=== PATIENT | male | born 1955 | race Caucasian/White ===

== ENCOUNTER 2023-08-19 06:15 | Inpatient (IN) | payer MEDICARE, OTHER, SELFPAY ==
[2023-08-19] VITALS (22 sets, daily range): BP systolic 67–192; BP diastolic 53–160; BMI 27.0
[2023-08-19] MEDS: DILAUDID 0.5 MG IV (04:25)
[2023-08-19 04:28] LABS: % Basophils 0.9 % (0-2); % Eosinophils 1.9 % (0-6); % Immature Granulocytes 0.3 % (0-0.5); % Lymphocytes 37.5 % (20.5-51.1); % Monocytes 5.7 % (1.7-9.3); % Neutrophils 53.7 % (42.2-75.2); Absolute Basophils 0.1 10^3/uL (0-0.2); Absolute Eosinophils 0.2 10^3/uL (0-0.7); Absolute Lymphocytes 4.3 10^3/uL (1.2-3.4); Absolute Monocytes 0.7 10^3/uL (0.1-0.6); Absolute Neutrophils 6.1 10^3/uL (1.4-6.5); Hematocrit 45.7 % (39.0-52.0); Hemoglobin 16.3 g/dL (13.0-18.0); Mean Corp Hgb Conc. 35.7 g/dL (33.0-37.0); Mean Corpuscular Hgb 30.7 pg (27.0-31.0); Mean Corpuscular Volume 86.1 fL (80.0-94.0); Mean Platelet Volume 9.8 fL (7.4-10.4); Nucleated Red Blood Cells % 0 % (-); Platelet Count 240 10^3/uL (130-400); Red Blood Cell Count 5.31 10^6/uL (4.70-6.10); White Blood Cell Count 11.4 10^3/uL (4.8-10.8)
--- NOTE | 2023-08-19 04:30 | ED.GENMED ---
History of Present Illness
General
Chief Complaint: Chest Pain
Source: patient
Exam Limitations: none
Time Seen by Provider: 08/19/23 04:14
Nursing documentation reviewed up to this point in time: agreed with
Travel History
Have you had any contact with someone who has COVID-19?: No
Do you have any symptoms of coronavirus? Fever > 100 degrees, chills, cough, shortness of breath, sore throat, loss of taste or smell, muscle aches, or headache?: No
History of Present Illness
History of Present Illness:
Patient without any significant past medical history, presents to ED secondary to sudden onset of chest pain, when he came out of shower this morning around 3 AM. Chest pain described as pressure, burning, with radiation to the back, associated
with 'not feeling well'. Denies headache. Denies dizziness. Denies diaphoresis. Denies nausea or vomiting. Of note, patient states that he has had intermittent chest pain over the past 2 days, with each episode lasting approxi-1 hour with
spontaneous resolution. Denies recent illness. Denies leg pain or swelling. Denies recent travel. Denies recent surgery. There is family history of heart disease. Patient does not smoke alcohol.
Review of Systems
Review of Systems
Allergies reviewed?: Yes
All Other Systems: ROS reviewed and negative except as documented in HPI and ROS
Constitutional: Reports no symptoms
EENT: Reports no symptoms
Respiratory: Reports no symptoms
Cardiac: Reports chest pain
ABD/GI: Reports no symptoms
: Reports no symptoms
Musculoskeletal: Reports no symptoms
Skin: Reports no symptoms
Neurological: Reports no symptoms
Phy Exam
Physical Exam
Physical Exam:
Physical Exam
General: moderate distress, acutely ill. afebrile. hypertensive.
Head: nc/at. eomi
Neck: supple. no meningeal signs.
Heart: s1/s2 regular rate and rhythm, no murmur. equal radial pulses.
Lungs: no acute respiratory distress. clear bilaterally
Abdomen: normal bowel sounds. not tender.
Neuro: alert and oriented. no focal neurological deficits
Skin: no rash
Psychiatric: well kept. interactive and cooperative
Extremities: no edema. no calf tenderness.
Scores
Heart Score for Chest Pain Patients
STEMI patient?: Yes
History: Moderately Suspicious
ECG: Significant ST-Depression
Age: >/= 65 years
Risk Factors: No Risk Factors
Troponin: >1 - <3 x Normal Limit
Heart Score for Chest Pain Patients: 6
Heart Score Risk: 20.3% MACE over next 6 weeks
Course
Orders/Labs/Results
Orders:
Orders
08/19/23 04:09
Electrocardiogram (*1) Urgent
Reason for Study: Chest Pain
EKG- Treatment ONCE
08/19/23 04:19
Electrocardiogram (*1) Urgent
Reason for Study: Chest Pain
EKG- Treatment ONCE
Portable Chest Xray [CR Chest Portable - 1 View] Urgent
Comment:
Reason For Exam: chest pain
Reason Study Needs to be Portable: Unable to Transport
08/19/23 04:20
CMP [Comprehensive Metabolic Panel] Urgent
Complete Blood Count/With Diff Urgent
Troponin I Urgent
08/19/23 04:23
HYDROmorphone [Dilaudid] 0.5 mg .ROUTE .STK-MED ONE
08/19/23 04:25
HYDROmorphone [Dilaudid] 0.5 mg IV NOW STA
08/19/23 04:31
CT Angio Chest/Abd W/Wo Iv Contrast [CT Chest/abd Angio W/wo Iv Con] Urgent
Comment:
Reason For Exam: chest pain radiating to back
08/19/23 04:44
Fentanyl Citrate/Pf [Sublimaze] 50 mcg IV NOW STA
08/19/23 04:50
Nitroglycerin 100 mg/250 ml [Nitroglycerin Premix] 100 mg in 250 ml .ROUTE .STK-MED
08/19/23 04:55
Nitroglycerin 100 mg/250 ml [Nitroglycerin Premix] 100 mg in 250 ml IV NOW
Initial dose in mcg/min, then titrate:: 50
Titrate to keep:: Chest Pain Free
Titrate by mcg/min:: 5 mcg/min, may increase by 10 mcg/min if dose > 20 mcg/min
Frequency of titrations (minutes):: every 3-5 minutes
Maximum dose in mcg/min:: 200
Begin to taper infusion when:: Remained at goal for 2hrs
Taper by mcg/min:: 5 mcg/min
Frequency of taper (minutes) if patient maintains goal:: 30
Taper to off?: Yes
If infusion off & no longer maintaining goal:: Contact Provider
08/19/23 04:58
Heparin 1000 Units/500 ml [Heparin] 1,000 units in 500 ml .ROUTE .STK-MED
Heparin Sodium,Porcine/Ns/Pf [Heparin 2000 Units/1000 ml] 2,000 unit in 1,000 ml .ROUTE .STK-MED
Lidocaine HCl/Pf [Xylocaine-Mpf 1% Vial] 50 mg .ROUTE .STK-MED ONE
Nitroglycerin [Tridil] 1,500 mcg .ROUTE .STK-MED ONE
Verapamil Injectable [Isoptin/Verapamil Injection] 5 mg .ROUTE .STK-MED ONE
08/19/23 04:59
Fentanyl Citrate/Pf [Sublimaze] 100 mcg .ROUTE .STK-MED ONE
Midazolam HCl [Versed] 2 mg .ROUTE .STK-MED ONE
08/19/23 05:00
Heparin 10,000 units .ROUTE .STK-MED ONE
08/19/23 05:07
Ticagrelor [Brilinta] 180 mg .ROUTE .STK-MED ONE
08/19/23 05:26
Eptifibatide [Integrilin] 10 ml .ROUTE .STK-MED
Eptifibatide [Integrilin] 10 ml .ROUTE .STK-MED
08/19/23 06:11
Admit Patient As Directed
Co-Sign Provider:
Level of Care: Inpatient admission
Assign to:: IVU
Physician / Group: Hattie
Diagnosis: Anterior STEMI
Patient Condition: Serious
Reason for Hospitalization: Anterior STEMI
Expected length of stay greater than two midnights?: Yes
ELOS- Estimated Length of Stay in days: 4
I certify the patient meets the requirements for IP care: Yes
Electrocardiogram (*1) Urgent
Reason for Study: Other
Other Reason for Exam: s/p intervention
CARDIAC REHAB CONSULT Routine
Co-Sign Provider:
Type of Cardiac Rehab Referral: Outpatient
Diagnosis: STEMI
Date of Diagnosis/Surgery: 312
Referring Provider: Johnson Kuhn
Heparin Protocol- PTT Orders As Directed
PTT per Heparin protocol: -Obtain CBC and baseline PTT - if not already collected.
-Obtain PTT 6 hours from start of infusion. Then, every 6 hours until 2 consecutive
PTT's are therapeutic. Then, PTT Daily.
-With each rate change, obtain PTT every 6 hours until 2 consecutive PTT's are
therapeutic. Then, PTT Daily.
Activity As Directed
Activity Level: Out of Bed- Chair
Comment: bed/chair rest for 2 hours then out of bed ad katie
Assistant Operations Manager Procedure As Directed
Cardiac Cath Procedure: percutaneous coronary intervention
ECG as needed As Directed
ECG as needed for:: Rhythm Change
Intake/ Output As Directed
Frequency: Per unit guidelines
Notify MD As Directed
Notify physician if: For ECG after doses 1-5 and PRN rhythm change:
--Notify provider if QTc interval is > 500 msec
Notify MD As Directed
Notify physician if: PTT is greater than or equal to 200.
Notify MD As Directed
Notify physician if: immediately for chest pain or bleeding from access site(s)
Radial Artery Hemostasis Method As Directed
Instructions:: 3 mL out at 2 hour posts placement of band
3 mL out at 2 1/2 hours post placement of band
3 mL out at 3 hours post placement of band
Off at 3 1/2 hours post placement of band
If any oozing or hemotoma occurs:: re-inflate band and call provider
Site Checks As Directed
Check access site for bleeding/hematoma: Yes
Comment: on arrival, Q15min x4, Q30min x2, Q1 hr x2, Q2 hr x2, Q4 hr or per
protocol
Vascular Checks As Directed
Location: distal to access site - pulse check
Frequency: Other
Comment: on arrival, Q15min x4, Q30min x2, Q1 hr x2, Q2 hr x2, Q4 hr or per protocol
Vital Signs As Directed
Frequency: Other
Additional Instructions:: on arrival, Q15min x4, Q30min x2, Q1 hr x2, Q2 hr x2, then Q4 hr or per unit
protocol
08/19/23 06:12
Acetaminophen [Tylenol] 650 mg PO Q4HPRN PRN
08/19/23 06:13
DX Deep Vein Thrombosis Video Routine
08/19/23 06:15
0.9% Sodium Chloride 1000 ml [Nss] 1,000 ml IV 100 mls/hr
08/19/23 06:39
Troponin I Q6H
08/19/23 08:00
Aspirin Chewable [Low Strength Aspirin] 81 mg PO DAILY
08/19/23 Lunch
Cholesterol Lowering
At Your Request: Full Participation
Does patient need a safe tray?: No
Cholesterol Lowering: Sodium, 2 Gram
08/19/23 11:50
Troponin I Q6H
08/19/23 14:00
Metoprolol [Lopressor] 25 mg PO BID
08/19/23 18:00
Atorvastatin [Lipitor] 80 mg PO QPM
Enoxaparin Sodium [Lovenox] 40 mg SC QPM
08/19/23 18:25
Troponin I Q6H
08/19/23 20:00
Lisinopril [Zestril] 2.5 mg PO BID
Ticagrelor [Brilinta] 90 mg PO BID
08/20/23 06:00
Echo 2D MMode Color/Doppler IN AM
Reason for Study: Anterior STEMI
Cardiology Consult: Jeovany Kuhn
Electrocardiogram (*1) IN AM
Reason for Study: Other
Other Reason for Exam: s/p intervention
Basic Metabolic Panel IN AM
Cardiovascular Evaluation IN AM
Complete Blood Count/With Diff IN AM
Glycohemoglobin (HgbA1c) IN AM
08/21/23 06:00
Complete Blood Count/No Diff Q2D
Comment: notify provider: Platelet count < 130,000 or decrease by 50% from baseline
08/23/23 06:00
Complete Blood Count/No Diff Q2D
Comment: notify provider: Platelet count < 130,000 or decrease by 50% from baseline
08/25/23 06:00
Complete Blood Count/No Diff Q2D
Comment: notify provider: Platelet count < 130,000 or decrease by 50% from baseline
08/27/23 06:00
Complete Blood Count/No Diff Q2D
Comment: notify provider: Platelet count < 130,000 or decrease by 50% from baseline
08/29/23 06:00
Complete Blood Count/No Diff Q2D
Comment: notify provider: Platelet count < 130,000 or decrease by 50% from baseline
08/31/23 06:00
Complete Blood Count/No Diff Q2D
Comment: notify provider: Platelet count < 130,000 or decrease by 50% from baseline
09/02/23 06:00
Complete Blood Count/No Diff Q2D
Comment: notify provider: Platelet count < 130,000 or decrease by 50% from baseline
09/04/23 06:00
Complete Blood Count/No Diff Q2D
Comment: notify provider: Platelet count < 130,000 or decrease by 50% from baseline
Abnormal Lab Results
08/19/23 08/19/23
04:20 05:22
WBC 11.4 H 10^3/uL
(4.8-10.8)
Absolute Lymphs (auto) 4.3 H 10^3/uL
(1.2-3.4)
Absolute Monos (auto) 0.7 H 10^3/uL
(0.1-0.6)
BUN 22 H mg/dl
(9-20)
Glucose 153 H mg/dl
(70-99)
Total Bilirubin 2.1 H mg/dl
(0.2-1.3)
Troponin I 0.165 H* ng/ml
POC ACT Low Range 250 H Seconds
(116-155)
08/19/23 04:20
08/19/23 04:20
Vital Signs
Initial and Last Documented VS:
Initial Vital Signs
Pulse Resp BP Pulse Ox
88 24 192/116 100
08/19/23 04:15 08/19/23 04:15 08/19/23 04:15 08/19/23 04:15
Last Documented Vital Signs
Temp Pulse Resp BP Pulse Ox
97.6 F 61 18 138/84 98
08/19/23 16:10 08/19/23 16:45 08/19/23 16:10 08/19/23 16:04 08/19/23 16:10
MDM/Problems Addressed
MDM/Problems Addressed:
History exam concerning for acute coronary syndrome. Initial EKG with ST depression laterally and inferiorly, without any acute ST elevation. Patient given nitroglycerin x 2, without any change in chest pain. Patient subsequently given Dilaudid
for pain control. Repeat EKG concerning for potential evolution of anterior leads. Discussed with Dr. Kuhn, Assistant Operations Manager attending, including review of EKGs obtained. Agrees with plan to obtain CT angiogram at this time to evaluate for potential
dissection. If negative, patient will be transferred to Assistant Operations Manager for cardiac catheterization. Medications, including aspirin, heparin, and Brilinta, to be given, once dissection is ruled out.
Nitroglycerin gtt started for better BP control.
CTA Chest: negative for dissection.
Pt will be transferred to it support technician for cardiac catherization.
Critical care statement: A total of 40 minutes of critical care time was provided for this patient. This includes management of unstable vital signs, evaluation of the patient at bedside, reviewing the patient's pertinent medical records, discussion
with consultants, review of old EKGs and review of pertinent medical records. This time with separate from time utilized to perform the aforementioned documented procedures
*Critical Care Note
Total Time (30-74mins, 75-104mins- exclusive of procedures): 40 min
ED Attending Note
-
Portions of this chart may have been created with voice recognition software.� Occasional wrong word or��sound alike� substitutions may have occurred due to the inherent limitations of voice recognition software.
Discharge Plan
Departure
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
Date of Disposition: 08/19/23
Time of Disposition: 05:04
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
Presentation/result/management discussed w/ accepting MD/DO:
Discharge Problem:
Chest pain
Interventions
Interventions:
*General Assessment Last Done: 08/19/23 04:30
*Neglect/Abuse Screening Last Done: 08/19/23 04:30
ED- Fall Risk Assessment Last Done: 08/19/23 04:45
*Nursing Disposition Last Done: 08/19/23 04:45
ED- Cardiac Assessment Last Done: 08/19/23 04:45
Discharge Date and Time
Discharge Date/Time: 08/19/23 05:20
[2023-08-19 04:51] LABS: ALT (SGPT) 49 U/L (0-50); AST (SGOT) 41 U/L (17-59); Albumin 4.8 g/dl (3.5-5.0); Alkaline Phosphatase 77 U/L (38-126); Blood Urea Nitrogen 22 mg/dl (9-20); Calcium 10.2 mg/dl (8.4-10.2); Carbon Dioxide 27 mmol/L (22-30); Chloride 102 mmol/L (98-107); Estimated Creatinine Clearance 76 ml/min; Glucose 153 mg/dl (70-99); Sodium 140 mmol/L (135-145); Total Bilirubin 2.1 mg/dl (0.2-1.3); Total Protein 7.9 g/dl (6.3-8.2); eGFR > 60.00
[2023-08-19] MEDS: SUBLIMAZE 50 MCG IV (04:54)
[2023-08-19] MEDS: NITROGLYCERIN PREMIX 250 IV (04:55)
[2023-08-19 05:04] LABS: Troponin I 0.165 ng/ml
[2023-08-19 05:29] LABS: ACT-LR - POC 250 Seconds (116-155)
--- NOTE | 2023-08-19 06:11 | ITS.CL.CATH ---
Charge Histotechnologist - Catheterization
Cardiac Catheterization
Procedure Report:
CARDIAC CATHETERIZATION REPORT
Date of Procedure: 08/19/2023
Referring: Hernandez Bright MD ([facility])
Indication: Acute anterior STEMI x 2 hrs
HEMODYNAMIC DATA
AO: 151/88
LV: 151/17
LEFT VENTRICULOGRAPHY: Severe anterolateral and apical hypokinesis with EF 39 %
CORONARY ANGIOGRAPHY
Dominance: Right
Left Main: Normal
LAD: The LAD is proximally occluded. There is a high rising medium sized diagonal branch originating just proximal to the site of occlusion. There is MARCELLE grade 0 flow distal to the LAD occlusion. There is sluggish retrograde collateralization of
the LAD from the distal RPDA. The D1 branch has 70-80% mid stenosis. This is a small 1.5 mm vessel.
Circumflex: The circumflex gives rise to a twig like OM1 and a large OM 2. There is 60% ostial OM2 stenosis and 50% proximal OM2 stenosis. The mid circumflex has 30-40% stenosis immediately distal to the takeoff of OM 2. There is a small OM 3 and
several small left posterolateral branches originating from the circumflex
RCA: The RCA is dominant with 40% proximal stenosis and tandem 60 and 70% mid stenoses proximal to the crux. The acute marginal branch gives rise to the PDA and the RCA continues on to supply several small right posterolateral branches
Angioplasty: At the conclusion of the diagnostic study, we proceeded with intervention to treat the acute proximal LAD occlusion. Heparin was used for anticoagulation. The patient was not on aspirin at home and had not received aspirin in the
emergency room until the CT scan showed no evidence of dissection. He was given a bolus dose of Brilinta on arrival in the Charge Histotechnologist. For this reason I felt double bolus Integrilin would be addison. A JL 4 guide catheter was advanced to the left
coronary ostium. A whisper wire was successfully advanced across the occluded proximal LAD. Of note, I started with a hydrophilic whisper wire as the RCA collateral to the distal LAD suggested that this might actually be a more chronic occlusion.
The whisper wire easily crossed consistent with an acute occlusion. A 2.5 x 15 trek balloon was used to dilate the occlusion. This restored flow. There was a 70% mid LAD lesion noted downstream of the occlusion. We started by stenting the mid
LAD lesion with a 3.25 x 15 Xience esthela point CARLY which was deployed at 14 makenna and postdilated with a 3.25 NC trek to 17 makenna. The angiographic result was outstanding. At this point we stented the proximal LAD culprit lesion with a 3.5 x 18 Xience
esthela point CARLY deployed at 14 makenna then postdilated with a 3.5 NC trek to 17 makenna. The final angiographic result was outstanding with no residual stenosis at the infarct site and normal (MARCELLE grade III) flow to the LV apex. There were no procedural
complications.
Closure Device: None-the procedure was performed via the right radial artery. The Miguel Angel's test was normal prior to the procedure.
Radiation (mGy): 70
DAP (cm2.Gy): 62.7
Fluoroscopy time: 8.6 minutes
CONCLUSIONS
1: Acute anterior STEMI of approximately 2 hours duration
2: Multivessel CAD as described
3. Successful angioplasty and stenting of culprit proximal LAD occlusion using 3.5 x 18 Xience CARLY
4. Successful stenting of 70% mid LAD lesion using 3.25 x 15 Xience CARLY
5. We will review options for further revascularization to include stenting of the RCA disease
6. Recommend dual antiplatelet therapy for 12 months and aggressive risk factor modification along with routine post LA therapy with beta-samy and NEVIN inhibitor
Copy to: Clark Jaimes MD, Jeovany Kuhn MD
Jeovany Kuhn MD, [facility], [facility]
--- NOTE | 2023-08-19 06:20 | PTCARENOTE ---
Addendum entered by Kenzie Basurto RN 08/19/23 07:26:
pt w/ resid #1 chest/ back pain- instructed to call if pain worsens
Original Note:
Rec'd pt from tag and label cutter via stretcher on monitor accomp by wood and wood products labourer,oriented to icu routine,R rad TR band intact, fingers warm/good sensation, pulse ox on R hand- sat 99, R rad pulse intact, RA, lungs clear, sat 96, urinal at bedisde
--- NOTE | 2023-08-19 06:46 | CON.CAR ---
Consultation
Consultation Request
Date/Time Consultation Requested: 08/18 4:30 AM
Date/Time Consultation Performed: 08/18 4:50 AM
Requesting Provider: Deangelo
Performing Provider: Hattie
Reason for Consultation: Chest pain
Medical History
-
Chief Complaint: Chest pain
History of Present Illness:
68-year-old man with no prior cardiac history presents to the ER with unremitting moderate to severe chest discomfort radiating directly into his back since 330 this morning when he awoke. He had mild chest pain radiating to his back over the past
48 hours which he thought was muscular in etiology. This morning his pain was unremitting and accompanied by mild diaphoresis. He was brought to the ER by his . Initial ECG showed sinus rhythm with borderline ST elevation V2 V3 which did not
meet STEMI criteria. There was also inferior and lateral ST depression of about 1 mm. He was given sublingual nitroglycerin without relief. Following discussion with Dr. Hernandez Bright, a STEMI alert was called. CAD risk factors are negative for
family history of premature CAD although his dad of GA at 85 and his brother had a stent at age 70. He is a lifelong non-smoker. We have no idea about hypertension dyslipidemia or diabetes as he is not a frequent user of [facility].
He identifies Dr. Clark Jaimes as his primary physician although he has not seen him in several years.
PE: Blood pressure 190/96, heart rate 84 regular, respiratory rate 24
Neck supple no JVD carotids 1+
Heart sounds regular S1-S2 no murmur
Lungs clear
Abdomen soft nontender
No edema
Neuro nonfocal
Impression:
ACS/anterior STEMI
CTA done showing no evidence of dissection
Aspirin, Brilinta, heparin
Immediate cath with revascularization is planned
CCT 30 minutes
Allergies / Home Medications
Allergy/AdvReac Type Severity Reaction Status Date / Time
No Known Allergies Allergy Verified 08/19/23 04:17
Physical Exam
Vital Signs
Pulse Resp BP Pulse Ox
70 24 153/95 98
08/19/23 04:30 08/19/23 04:30 08/19/23 04:30 08/19/23 04:30
Lab Results
08/19/23 04:20
08/19/23 04:20
Troponin I 0.165 ng/ml H* 08/19/23 04:20
[2023-08-19] MEDS: NSS 1000 IV (06:59)
[2023-08-19] MEDS: LOW STRENGTH ASPIRIN 81 MG PO (07:30)
[2023-08-19] MEDS: TYLENOL 650 MG PO (07:44)
--- NOTE | 2023-08-19 07:58 | PTCARENOTE ---
report received, assessments per work list. patient alert and oriented. right radial TR band in place. lungs clear. monitor nsr, abdomen soft, active bowel sounds. patient states his chest and back pain were a 1/10 post cath and stents and is
presently a 3/10. Dr Kuhn updated by tiger text. medicated with tylenol per prn order. ekg repeated. received update from Dr Kuhn via tiger text, this was forwarded to the ICU pharmacist. call hicks in reach
--- NOTE | 2023-08-19 09:16 | PTCARENOTE ---
patient states he is more comfortable post tylenol and wants to 'hold off on percocet' at this time. no signs bleeding from right radial site
--- NOTE | 2023-08-19 12:43 | PTCARENOTE ---
Addendum entered by Mayra Gonzalez RN 08/19/23 12:56:
cardiology RN RESEARCH updated with critical troponin
Original Note:
patient assisted to bathroom, gait steady. c/o continued chest/back mild discomfort 07/19 but declines percocet. right wrist dressing dry and intact. no signs bleeding or hematoma. call hicks in reach
[2023-08-19] MEDS: LOPRESSOR 25 MG PO ×2 (13:49→20:23)
--- NOTE | 2023-08-19 14:16 | PTCARENOTE ---
tolerating diet, states chest and back achiness has not changed but continues to decline Tylenol or Percocet. call hicks in reach
--- NOTE | 2023-08-19 16:00 | PTCARENOTE ---
Rec'd report from Marya in ICU. Pt transported w/personal belongings via WC & able to ambulate into room unassisted. Pt AAOx3 w/c/o of 'mild chest tenderness' s/p cardiac cath this AM. Pt w/ dressing C/D/I to R radial access site. VS stable w/HR
in the 60's & BP 138/84. Pt oriented to rm & call hicks within reach. No addtl needs at this time.
[2023-08-19] MEDS: LOVENOX 40 MG SC (18:27)
[2023-08-19] MEDS: LIPITOR 80 MG PO (18:27)
[2023-08-19] MEDS: BRILINTA 90 MG PO (20:23)
[2023-08-19] MEDS: ZESTRIL 2.5 MG PO (20:23)
[2023-08-20] VITALS (12 sets, daily range): BP systolic 98–140; BP diastolic 58–81; BMI 26.4
[2023-08-20 03:51] LABS: % Basophils 0.3 % (0-2); % Eosinophils 1.3 % (0-6); % Immature Granulocytes 0.3 % (0-0.5); % Lymphocytes 23.2 % (20.5-51.1); % Monocytes 6.7 % (1.7-9.3); % Neutrophils 68.2 % (42.2-75.2); Absolute Eosinophils 0.2 10^3/uL (0-0.7); Absolute Lymphocytes 2.7 10^3/uL (1.2-3.4); Absolute Monocytes 0.8 10^3/uL (0.1-0.6); Absolute Neutrophils 8.1 10^3/uL (1.4-6.5); Blood Urea Nitrogen 18 mg/dl (9-20); Calcium 9.5 mg/dl (8.4-10.2); Carbon Dioxide 27 mmol/L (22-30); Chloride 104 mmol/L (98-107); Estimated Creatinine Clearance 93 ml/min; Glucose 110 mg/dl (70-99); HDL Cholesterol 50 mg/dl; Hematocrit 41.5 % (39.0-52.0); Hemoglobin 14.7 g/dL (13.0-18.0); LDL Cholesterol, Calculated 117 mg/dl; Mean Corp Hgb Conc. 35.4 g/dL (33.0-37.0); Mean Corpuscular Hgb 30.9 pg (27.0-31.0); Mean Corpuscular Volume 87.2 fL (80.0-94.0); Mean Platelet Volume 10.4 fL (7.4-10.4); Nucleated Red Blood Cells % 0 % (-); Platelet Count 195 10^3/uL (130-400); Potassium 4.3 mmol/L (3.5-5.1); Red Blood Cell Count 4.76 10^6/uL (4.70-6.10); Sodium 138 mmol/L (135-145); Total Cholesterol 197 mg/dl (50-199); Triglyceride 154 mg/dl (10-149); Very Low Density Lipoprotein 30 mg/dl (0-30); White Blood Cell Count 11.8 10^3/uL (4.8-10.8); eGFR > 60.00
--- NOTE | 2023-08-20 07:25 | W.PN.CD ---
Today's Communication / Plan
-
Staged PCI of RCA today.
Echocardiogram pending.
Impression / Plan
-
Impression/Plan: 68 y/o male with no significant prior medical history admitted with anterior STEMI.
#STEMI
-S/P successful PCI to proximal/mid LAD (Xience Skypoint 3.5 x 18, 3.25 x 15 CARLY) early on 08/19/2023.
-Troponin peaked at 143.
-DAPT with aspirin and ticagrelor for at least 12 months.
-Echocardiogram ordered and pending.
-Secondary prevention with high dose, high potency statin.
#Residual CAD
-Plan for staged PCI of the 60-70% mRCA lesion.
-Medical management of LCx disease.
#HLD
-New diagnosis.
-Total cholesterol = 197, LDL = 117, HDL = 50, Triglycerides = 154.
-High dose, high potency statin.
-Goal LDL < 55.
#PPx
-SCD's for DVT/VTE.
-No role for PPI at this time.
#Dispo
-IVU status.
-Full code.
Subjective/Interval History:
One episode of hypotension () yesterday at 16:02 - none since.
Renal function stable.
Currently chest pain free.
DATA:
Cardiac Catheterization/PCI, 08/19/2023:
CORONARY ANGIOGRAPHY
Dominance: Right
Left Main: Normal
LAD: The LAD is proximally occluded.� There is a high rising medium sized diagonal branch originating just proximal to the site of occlusion.� There is MARCELLE grade 0 flow distal to the LAD occlusion.� There is sluggish retrograde collateralization of
the LAD from the distal RPDA.� The D1 branch has 70-80% mid stenosis.� This is a small 1.5 mm vessel.
Circumflex: The circumflex gives rise to a twig like OM1 and a large OM 2.� There is 60% ostial OM2 stenosis and 50% proximal OM2 stenosis.� The mid circumflex has 30-40% stenosis immediately distal to the takeoff of OM 2.� There is a small OM 3 and
several small left posterolateral branches originating from the circumflex
RCA: The RCA is dominant with 40% proximal stenosis and tandem 60 and 70% mid stenoses proximal to the crux.� The acute marginal branch gives rise to the PDA and the RCA continues on to supply several small right posterolateral branches
Successful angioplasty and stenting of culprit proximal LAD occlusion using 3.5 x 18 Xience CARLY
Successful stenting of 70% mid LAD lesion using 3.25 x 15 Xience CARLY
CTA chest/abdomen/pelvis, 08/19/2023:
IMPRESSION:
Atherosclerosis including coronary artery calcification with hypoenhancement of the anterior aspect of the interventricular septum and apex of the left ventricle such as may be seen with left anterior descending distribution myocardial
ischemia/infarct
Physical Exam
Vital Signs/Labs
Vital Signs
Temp Pulse Resp BP Pulse Ox
36.7 C 64 16 115/75 97
08/20/23 07:15 08/20/23 07:15 08/20/23 07:15 08/20/23 03:00 08/20/23 07:15
08/18/23 08/19/23 08/20/23
11:59 11:59 11:59
Actual Weight 95.2 kg
08/20/23 03:14
08/20/23 03:14
Triglycerides 154 mg/dl (10-149) H 08/20/23 03:14
LDL Cholesterol, Calc 117 mg/dl 08/20/23 03:14
VLDL Cholesterol, Calc 30 mg/dl (0-30) 08/20/23 03:14
HDL Cholesterol 50 mg/dl 08/20/23 03:14
LAB Results
08/19/23 08/19/23 08/19/23
04:20 06:39 11:50
Troponin I 0.165 H* 22.100 H* D 143.000 H* D
08/19/23 08/20/23
18:25 03:14
Troponin I 74.700 H* D 41.500 H*
Physical Exam
Constitutional: No acute distress and Comfortable
EENT: Anicteric and Moist mucous membranes
Cardiovascular: Rhythm & rate is regular, Pedal edema is absent, JVD pressure is normal, S1S2 is normal and Murmur/rub/gallop absent
Respiratory: Respiratory effort normal, Lungs clear to auscul., Wheeze Absent and Crackles Absent
GI: Soft, Distention absent, Flat, Non tender and Normal bowel sounds
Neuro/Psych: AO x 3
Other: Cath Site (Right radial access site is C/D/I.)
Data Reviewed
-
Date of Service: August 20, 2023
Medical Decision Making: Reviewed Test Results, Independent Historian Assessment, Test Interpretation and Review of Case with other Provider
EKG: Tracing Personally Visualized and interpreted and Report Reviewed by me
X-Ray/CT/US/MRI/NUC/PET: Image Personally Visualized and interpreted and Report Reviewed by me
Medical Tests (PFT, Pathology etc): Image Personally Visualized and interpreted, Report Reviewed by me and Discussed with Physician
Labs: Labs Reviewed by me
Old Records: Reviewed
[2023-08-20] MEDS: LOPRESSOR 25 MG PO (07:55)
[2023-08-20] MEDS: ZESTRIL 2.5 MG PO ×2 (07:55→20:23)
[2023-08-20] MEDS: BRILINTA 90 MG PO ×2 (07:56→22:45)
[2023-08-20] MEDS: LOW STRENGTH ASPIRIN 81 MG PO (07:56)
[2023-08-20 09:25] LABS: Glycohemoglobin (HgbA1c) 5.7 % (4.0-5.6)
--- NOTE | 2023-08-20 09:27 | CM ---
Addendum entered by Alma Jones 08/20/23 14:40:
Spoke with and Mrs. Echeverria to review co=pay for Brilinta 90 mg po bid. They feel it is to costly. Updated N.P.
Addendum entered by Alma Jones 08/20/23 10:08:
Telephone call to [facility], ([phone]) to check on his co-pay for Brilinta 90 mg po bid. His first script would be $362.19 because he has a deductible of $280.00 that has to be met. After his deductible has been met his co-pay would be 50%
of the cost of the medication, so his co-pay would be $221.99 a month.
Original Note:
Reviewed chart. Met with and Mrs. Echeverria to review discharge plans. He states prior to admission he resides with his spouse in a one story home with one step to enter. He states prior to admission he was independent with ambulation and adls.
He states he does not have any DME in the home. He states he has a prescription plan and uses [facility]. He can not recall the pharmacy provider and his pharmacy benefit card is at home. Medical work-up in progress. The discharge plan is
to return home with his spouse when medically stable.
--- NOTE | 2023-08-20 11:25 | ITS.CL.ANGIO ---
Adjunct Phlebotomy Instructor - Angioplasty
Angioplasty
Procedure Report:
CARDIAC CATHETERIZATION REPORT
Date of Procedure: 08/20/2023
Referring: Jeovany Kuhn M.D.
INDICATION: Staged PCI after anterior STEMI.
PROCEDURE:
1. Left heart catheterization.
2. Limited coronary angiography of the RCA.
3. Successful PCI of the mid RCA.
ACCESS:
6 Gabonese right radial artery.
CATHETERS:
1. 6 Gabonese JR4 guiding catheter.
HEMODYNAMIC DATA
Weight (kg): 94.8
AO (s/d/x, mmHg): 107/67/81
LV (s/x mmHg): 110/10
LEFT VENTRICULOGRAPHY: Not performed.
CORONARY ANGIOGRAPHY
Dominance: Right.
Left Main: Not injected. Known to be a normal size, bifurcating vessel without coronary artery disease.
LAD: Not injected. Known to be a normal size vessel giving rise to 2 diagonals. Prior stents are present in the proximal and mid vessel.
Ramus: Congenitally absent.
Circumflex: Not injected. Known to be a normal size, nondominant vessel giving rise to 2 obtuse marginals. There is at least moderate disease in the body of the circumflex spanning the origin of OM 2 with ostial and proximal disease within OM 2.
RCA: Normal size, dominant vessel. There is a 40% lesion in the proximal vessel as the artery turns caudal. There are tandem 70% lesions in the mid vessel.
INTERVENTION(S)
1. Successful PCI of the tandem 70% mid RCA lesions (Xience Skypoint 3.0 x 28 CARLY, postdilated with a 3.0 NC balloon throughout and a 3.5 x 12 NC balloon in the proximal margin) with reduction in stenosis to 0%, maintaining MARCELLE-3 flow.
Narrative:
The decision was made to proceed with percutaneous coronary intervention. A 6Fr JR4 guiding catheter was advanced to the aortic root and seated in the right coronary artery. Additional heparin was given and a Power Turn Flex wire was advanced into
the distal RCA/RPDA. The tandem 70% mid RCA lesions were predilated with a 2.0 x 12 semi-compliant balloon to 12 makenna. The semi-compliant balloon was removed and a Xience Skypoint 3.0 x 28 drug-eluting stent was advanced. Unfortunately, the stent
would not pass into the lesions due to the curvature of the vessel as well as the local stenosis. The stent was removed and a 3.0 x 15 noncompliant balloon was advanced. The tandem stenoses were dilated with a 3.0 x 15 NC balloon to 12 makenna. The
noncompliant balloon was removed and the stent was readvanced, again failing to advance beyond the lesions in question. The stent was withdrawn and a 6 Gabonese guide liner was advanced over the noncompliant balloon into the mid RCA. The
noncompliant balloon was removed and the stent was readvanced with GuideLiner support, this time passing easily into the distal vessel. Meticulous care was taken while positioning the stents over the tandem lesions. The stent was deployed at 12
atmospheres. The stent balloon was removed. A 3.0 x 15 noncompliant balloon was readvanced into the stent and the stent was postdilated to 14 makenna in the mid stent and 16 makenna in the proximal margin atmospheres. The 3.0 x 15 NC balloon was withdrawn
and a 3.5 x 12 NC balloon was advanced. The proximal stent margin was postdilated to 12 makenna. The noncompliant balloon was withdrawn. Angiography was performed in orthogonal views, confirming good stent expansion and an excellent angiographic
result. The coronary wire was withdrawn and the guide was disengaged from the artery. The catheter was removed over a standard J-wire.
Closure Device: Vascular band.
Radiation (mGy): 333.07
DAP (cm2.Gy): 22.4883
Fluoroscopy time (minutes): 8.0
Sedation time (minutes): 40
CONCLUSIONS
1. Right dominant circulation status post prior PCI to the proximal and mid LAD, moderate disease in the body of the circumflex and ostial obtuse marginal and tandem, 70% lesions in the mid RCA status post successful PCI (Xience Skypoint 3.0 x 28
CARLY, postdilated with a 3.0 NC balloon throughout and a 3.5 x 12 NC balloon in the proximal margin) with reduction in stenosis to 0%, maintaining MARCELLE-3 flow.
2. Normal filling pressures (LVEDP = 10 mmHg at 94.8 kg).
RECOMMENDATIONS:
1. Expectant management after cardiac catheterization via right radial approach.
2. Limited weight bearing on the right wrist for one week.
3. Maintain dual antiplatelet therapy with aspirin and ticagrelor for at least 12 months, followed by aspirin indefinitely.
4. Guideline directed medical therapy as hemodynamics will tolerate.
5. High-dose, high potency statin.
6. Referral to cardiac rehab already placed.
Copy to: Jeovany Kuhn M.D., Clark Jaimes M.D.
Eduardo Hernandez DO, FACC, FACP
--- NOTE | 2023-08-20 11:58 | SUR.PHASEI ---
Addendum entered by Ness Almodovar RN 08/20/23 12:03:
nursing note
Original Note:
Small hematoma noted prox to R band, previously soft, now a little firmer. Manual pressure held for 7 minutes, Brittany Larsen notified and came to see Pt. Additional 1 ml of air added to R band. Site remains soft after manual pressure held. Pt reported
numbness of R thumb, O2 sat 96% R thumb.
--- NOTE | 2023-08-20 12:06 | PTCARENOTE ---
Small hematoma noted prox to R band, previously soft, now a little firmer. Manual pressure held for 7 minutes, Brittany Larsen notified and came to see Pt. Additional 1 ml of air added to R band. Site remains soft after manual pressure held. Pt reported
numbness of R thumb, O2 sat 96% R thumb.
--- NOTE | 2023-08-20 12:37 | PTCARENOTE ---
Increased firmness noted in R forearm prox to R band again, manual pressure held x5 min.Brittany Larsen notified, cardiac catheterization technician RN applied 2nd R band in that prox location, O2 sat remains 95-96% on R thumb.
[2023-08-20] MEDS: NSS 1000 IV (13:44)
[2023-08-20 14:40] LABS: ACT-LR - POC > 397 Seconds (116-155)
[2023-08-20 14:40] LABS: ACT-LR - POC > 397 Seconds (116-155)
[2023-08-20] MEDS: LOVENOX 40 MG SC (18:13)
[2023-08-20] MEDS: LIPITOR 80 MG PO (18:13)
--- NOTE | 2023-08-20 20:50 | PTCARENOTE ---
Assumed care of patient. NSR. VSS. RA. Denies pain. Right radial site dressing c/d/i. Trace edema proximal to site, no hematoma, + pulse, + sensation. Assessment per nursing flowsheet.
[2023-08-21 03:14] VITALS: BP 111/78
--- NOTE | 2023-08-21 03:52 | PTCARENOTE ---
EKG resulted stemi - Sharath BYRNES aware. No chest pain. VSS. No new orders.
Pt c/o of numbness on right lateral thigh. Pulses palpable, skin warm/dry/pink, no other sensation issue on that extremity or any where else. Strength WNL - Sharath BYRNES aware. Continue to monitor for now, no new orders.
[2023-08-21 04:02] LABS: Hemoglobin 14.1 g/dL (13.0-18.0); Mean Corp Hgb Conc. 35.3 g/dL (33.0-37.0); Mean Corpuscular Hgb 30.8 pg (27.0-31.0); Mean Corpuscular Volume 87.3 fL (80.0-94.0); Mean Platelet Volume 10.3 fL (7.4-10.4); Platelet Count 181 10^3/uL (130-400); Red Blood Cell Count 4.58 10^6/uL (4.70-6.10); Red Cell Dist. Width 12.1 % (11.5-14.5); White Blood Cell Count 10.4 10^3/uL (4.8-10.8)
[2023-08-21 04:24] LABS: Blood Urea Nitrogen 20 mg/dl (9-20); Calcium 9.3 mg/dl (8.4-10.2); Carbon Dioxide 27 mmol/L (22-30); Chloride 104 mmol/L (98-107); Estimated Creatinine Clearance 93 ml/min; Glucose 93 mg/dl (70-99); Potassium 4.3 mmol/L (3.5-5.1); Sodium 137 mmol/L (135-145); eGFR > 60.00
[2023-08-21 07:52] LABS: ACT-LR - POC > 397 Seconds (116-155)
--- NOTE | 2023-08-21 08:03 | W.PN.CD ---
Today's Communication / Plan
-
home today
Impression / Plan
-
Impression/Plan: 68 y/o male with no significant prior medical history admitted with anterior STEMI.
#STEMI
-S/P successful PCI to proximal/mid LAD (Xience Skypoint 3.5 x 18, 3.25 x 15 CARLY) early on 08/19/2023.
-Troponin peaked at 143.
-DAPT with aspirin and ticagrelor for at least 12 months.
-Echocardiogram shows anterior HK with EF 40-45%
-ECG Q v1-v2 with persistent ST elevation, evolution of anterior Tw inversions (c/w GA)
#Residual CAD
-Plan for staged PCI of the 60-70% mRCA lesion.
-Medical management of LCx disease.
#HLD
-New diagnosis.
-Total cholesterol = 197, LDL = 117, HDL = 50, Triglycerides = 154.
-High dose, high potency statin.
-Goal LDL < 55.
#PPx
-SCD's for DVT/VTE.
-No role for PPI at this time.
#Dispo
- OK for home today - telem without any VT
- I discussed extreme importance of compliance with medical Rx doni DAPT and activity restriction until advanced by cardiac rehab team. Advised to walk 5 min twice daily for 3 days then can increase to 10min. NO wt training or strenuous activity x
4-6 wks
Subjective/Interval History:
-CP, SOB , palp
DATA:
Cardiac Catheterization/PCI, 08/19/2023:
CORONARY ANGIOGRAPHY
Dominance: Right
Left Main: Normal
LAD: The LAD is proximally occluded.� There is a high rising medium sized diagonal branch originating just proximal to the site of occlusion.� There is MARCELLE grade 0 flow distal to the LAD occlusion.� There is sluggish retrograde collateralization of
the LAD from the distal RPDA.� The D1 branch has 70-80% mid stenosis.� This is a small 1.5 mm vessel.
Circumflex: The circumflex gives rise to a twig like OM1 and a large OM 2.� There is 60% ostial OM2 stenosis and 50% proximal OM2 stenosis.� The mid circumflex has 30-40% stenosis immediately distal to the takeoff of OM 2.� There is a small OM 3 and
several small left posterolateral branches originating from the circumflex
RCA: The RCA is dominant with 40% proximal stenosis and tandem 60 and 70% mid stenoses proximal to the crux.� The acute marginal branch gives rise to the PDA and the RCA continues on to supply several small right posterolateral branches
Successful angioplasty and stenting of culprit proximal LAD occlusion using 3.5 x 18 Xience CARLY
Successful stenting of 70% mid LAD lesion using 3.25 x 15 Xience CARLY
CTA chest/abdomen/pelvis, 08/19/2023:
IMPRESSION:
Atherosclerosis including coronary artery calcification with hypoenhancement of the anterior aspect of the interventricular septum and apex of the left ventricle such as may be seen with left anterior descending distribution myocardial
ischemia/infarct
Physical Exam
Vital Signs/Labs
Vital Signs
Temp Pulse Resp BP Pulse Ox
97.9 F 83 16 111/78 96
08/21/23 03:19 08/21/23 04:00 08/21/23 03:19 08/21/23 03:14 08/21/23 03:19
08/20/23 08/21/23 08/22/23
06:59 06:59 06:59
Actual Weight 205 lb 11.06 oz
08/21/23 03:21
08/21/23 03:21
Triglycerides 154 mg/dl (10-149) H 08/20/23 03:14
LDL Cholesterol, Calc 117 mg/dl 08/20/23 03:14
VLDL Cholesterol, Calc 30 mg/dl (0-30) 08/20/23 03:14
HDL Cholesterol 50 mg/dl 08/20/23 03:14
LAB Results
08/19/23 08/19/23 08/19/23
04:20 06:39 11:50
Troponin I 0.165 H* 22.100 H* D 143.000 H* D
08/19/23 08/20/23
18:25 03:14
Troponin I 74.700 H* D 41.500 H*
Physical Exam
Constitutional: No acute distress and Comfortable
Cardiovascular: Rhythm & rate is regular and Murmur/rub/gallop absent
Respiratory: Respiratory effort normal, Lungs clear to auscul., Wheeze Absent and Crackles Absent
GI: Soft and Normal bowel sounds
Neuro/Psych: AO x 3 and Motor deficits absent
Data Reviewed
-
Date of Service: August 21, 2023
[2023-08-21 08:21] VITALS: BP 100/80
[2023-08-21] MEDS: LOW STRENGTH ASPIRIN 81 MG PO (08:33)
[2023-08-21] MEDS: ZESTRIL 2.5 MG PO (08:33)
[2023-08-21] MEDS: PLAVIX 600 MG PO (08:34)
[2023-08-21] MEDS: TOPROL XL 25 MG PO (08:34)
[2023-08-21] MEDS: PREVNAR 20 0.5 ML IM (09:39)
--- NOTE | 2023-08-21 10:53 | W.DS.TRANS ---
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
-
Discharge Instructions:
Discharge Diagnosis/Procedures STEMI, Angioplasty with stent to LAD 08/19/23 and
RCA 08/20/23
Diet Low Cholesterol,Low Sodium
Activity No strenuous activity
Additional Activity for 4 weeks
Other Services Cardiac Rehab
Specialty Instructions Weigh Daily
Instructions:
Stand-Alone Forms: DC Instructions- Cath/EP Lab
Changes to Home Medications: Yes
Discharge Medications:
DC Medications w/original date entered in [facility]
Balance Of Nature 2 cap PO DAILY Supplement 08/19/23
Collagen Powder 2 PO DAILY Supplement 08/19/23
turmeric 400 mg capsule 1 mg PO DAILY Supplement 08/19/23
aspirin 81 mg chewable tablet (Children's Aspirin) 81 mg PO DAILY #1 tab 08/21/23
atorvastatin 80 mg tablet 80 mg PO QPM #90 tabs 08/21/23
clopidogrel 75 mg tablet 75 mg PO DAILY #90 tabs 08/21/23
lisinopril 2.5 mg tablet 2.5 mg PO BID #60 tabs 08/21/23
metoprolol succinate 25 mg tablet,extended release 24 hr 25 mg PO DAILY #90 tabs 08/21/23
nitroglycerin 0.4 mg sublingual tablet 0.4 mg sublingual [id number] PRN chest pain #25 tabs 08/21/23
Home Medication Changes
all new except supplements
Pending Results: No
--- NOTE | 2023-08-21 11:44 | PTCARENOTE ---
Pt walking in halls, denies any discomfort. Pt seen by and Brittany Larsen NP. Telemetry and IV device removed. Discharge instructions reviewed with pt and his regarding medications and their possible side effects, activity restrictions,
wound care, reporting cares and concerns and follow up appt's. Very good understanding verbalized. Pt escorted out via wheelchair and discharged to home.
== END 2023-08-21 11:05 | disposition home or self-care (01) | DRG 322 ==
LOC: IVU 06:15
PROVIDERS: Internal Medicine Cardiovascular Disease; Nurse Practitioner Adult Health; ADMITTING PHYSICIAN Internal Medicine Cardiovascular Disease; EMERGENCY PHYSICIAN Emergency Medicine; FAMILY PHYSICIAN Family Medicine
PROC: 4A023N7 Measurement of Cardiac Sampling and Pressure, Left Heart, Percutaneous Approach (ICD-10-PCS; 2023-08-19)
PROC: 027035Z Dilation of Coronary Artery, One Artery with Two Drug-eluting Intraluminal Devices, Percutaneous Approach (ICD-10-PCS; 2023-08-19)
PROC: B2151ZZ Fluoroscopy of Left Heart using Low Osmolar Contrast (ICD-10-PCS; 2023-08-19)
PROC: B2111ZZ Fluoroscopy of Multiple Coronary Arteries using Low Osmolar Contrast (ICD-10-PCS; 2023-08-19)
PROC: 027034Z Dilation of Coronary Artery, One Artery with Drug-eluting Intraluminal Device, Percutaneous Approach (ICD-10-PCS; 2023-08-20)
PROC: 3E0234Z Introduction of Serum, Toxoid and Vaccine into Muscle, Percutaneous Approach (ICD-10-PCS; 2023-08-21)
DX: I21.09 ST elevation (STEMI) myocardial infarction involving other coronary artery of anterior wall (principal); E78.5 Hyperlipidemia, unspecified; I25.10 Atherosclerotic heart disease of native coronary artery without angina pectoris; Z82.49 Family history of ischemic heart disease and other diseases of the circulatory system; Z23 Encounter for immunization
CPT/HCPCS: 71045; 71275; 74175; 80048; 80053; 80061; 83036; 84484; 85025; 85027; 85347; 90677; 93005; 93306; 93458; 96374; 96375; 99291; C1725; C1769; C1874; C1894; C9600; G0009; J1327; Q9967

== ENCOUNTER → 2023-09-23 07:42 | Outpatient (REF) | payer MEDICARE, OTHER, SELFPAY | LOC: DHCBC/DCA 07:42 | PROVIDERS: ATTENDING PHYSICIAN Internal Medicine Cardiovascular Disease; FAMILY PHYSICIAN Family Medicine | DX: I25.10 Atherosclerotic heart disease of native coronary artery without angina pectoris (principal); R94.31 Abnormal electrocardiogram [ECG] [EKG] | CPT/HCPCS: 78452; 93017; A9500 ==

== ENCOUNTER 2023-10-06 06:31 | Outpatient (RCR) | payer MEDICARE, OTHER, SELFPAY | END 2023-10-06 23:59 | disposition home or self-care (01) | LOC: CRHB 06:31 | PROVIDERS: ATTENDING PHYSICIAN Internal Medicine Cardiovascular Disease | DX: I25.10 Atherosclerotic heart disease of native coronary artery without angina pectoris; I20.1 Angina pectoris with documented spasm; Z95.5 Presence of coronary angioplasty implant and graft | CPT/HCPCS: 93798; G0422; G0423 ==

== ENCOUNTER 2023-11-07 06:35 | Outpatient (RCR) | payer MEDICARE, OTHER, SELFPAY | END 2023-11-07 23:59 | disposition home or self-care (01) | LOC: CRHB 06:35 | PROVIDERS: ATTENDING PHYSICIAN Internal Medicine Cardiovascular Disease | DX: I25.111 Atherosclerotic heart disease of native coronary artery with angina pectoris with documented spasm (principal); Z95.5 Presence of coronary angioplasty implant and graft | CPT/HCPCS: G0422; G0423 ==

== ENCOUNTER 2023-12-01 06:37 | Outpatient (RCR) | payer MEDICARE, OTHER, SELFPAY | END 2023-12-01 23:59 | disposition home or self-care (01) | LOC: CRHB 06:37 | PROVIDERS: ATTENDING PHYSICIAN Internal Medicine Cardiovascular Disease | DX: I25.10 Atherosclerotic heart disease of native coronary artery without angina pectoris (principal); Z95.5 Presence of coronary angioplasty implant and graft | CPT/HCPCS: G0422; G0423 ==

== ENCOUNTER → 2023-12-10 09:53 | Outpatient (REF) | payer MEDICARE, OTHER, SELFPAY | LOC: RCS 09:53 | PROVIDERS: ATTENDING PHYSICIAN Nurse Practitioner; FAMILY PHYSICIAN Family Medicine | DX: I21.09 ST elevation (STEMI) myocardial infarction involving other coronary artery of anterior wall (principal); I25.10 Atherosclerotic heart disease of native coronary artery without angina pectoris; E78.00 Pure hypercholesterolemia, unspecified | CPT/HCPCS: 93306 ==